=== PATIENT | male | born 1960 | race African-American/Black ===

== ENCOUNTER 2021-01-07 01:22 | Emergency (ER) | payer OTHER ==
[~2021-01-07] VITALS: Ht 172.7 cm; Wt 86.2 kg
[~2021-01-07 01:22] MED LIST: AMITRIPTYLINE H25 M2 PO; CARDURA1 MG PO; CELEXA 20 MG TA20 MG PO; CODEINE PO; CRESTOR10 MG PO; GABAPENTIN600 M1; HYDROCODON-ACE1 EAC7 PO; INVANZ 1GM/NS 101 GM IV; LEVITRA5 MG PO; NEURONTIN 300300 M1 PO; PRINIVIL20 MG PO; XANAX 0.25 MG0.25 MG PO; ZOSYN 3.3753.375 GM IV
[2021-01-07] MEDS ORDERED: OXYBUTYNIN 5 MG5 M2 PO (01:37)
[2021-01-07] MEDS ORDERED: TAMSULOSIN HCL0.4 MG PO (01:37)
[2021-01-07] MEDS ORDERED: METOPROLOL SUCC25 M1 PO (01:37)
[2021-01-07] MEDS ORDERED: ROSUVASTATIN CA20 MG PO (01:37)
[2021-01-07] MEDS ORDERED: VARDENAFIL HCL20 MG PO (01:37)
[2021-01-07] MEDS ORDERED: HYDROCHLOROTH12.5 M1 PO (01:37)
[2021-01-07 02:26] LABS: BASOPHILS 0.3 % (0.0-2.0); HEMATOCRIT 42.8 % (42.0-52.0); HEMOGLOBIN 14.4 gm/dL (14.0-18.0); MCH 29.1 pg (26.0-34.0); MCHC 33.7 g/dL (28.0-37.0); MCV 86.4 fL (80.0-100.0); MONOCYTES 9.5 % (1.0-8.0); PLATELET COUNT 217 thou/uL (150-400); POLYS 52.2 % (36.0-66.0); RBC 4.95 mil/uL (4.50-6.00); RDW 13.5 % (10.5-14.5); WBC 5.7 thou/uL (4.0-11.0)
[2021-01-07 02:32] LABS: CALCIUM 9.3 mg/dL (8.5-10.1); CREATININE 1.3 mg/dL (0.7-1.3); POTASSIUM 3.8 mmol/L (3.5-5.1)
[2021-01-07 02:38] LABS: ALBUMIN 4.4 g/dL (3.4-5.0); TOTAL BILIRUBIN 0.4 mg/dL (0.2-1.0); TOTAL PROTEIN 8.7 g/dL (6.4-8.2)
[2021-01-07] MEDS ORDERED: PERCOCET 5-3251 EACH PO (05:26)
[2021-01-07 05:51] VITALS: BP 149/71
== END 2021-01-07 05:50 | disposition home or self-care (01) ==
LOC: ER 01:22
PROVIDERS: Emergency Medicine
DX: S62.615A Displaced fracture of proximal phalanx of left ring finger, initial encounter for closed fracture (principal); S80.01XA Contusion of right knee, initial encounter; S60.222A Contusion of left hand, initial encounter; R51.9 Headache, unspecified; R07.89 Other chest pain; I10 Essential (primary) hypertension; R10.32 Left lower quadrant pain; M25.562 Pain in left knee; F32.9 Major depressive disorder, single episode, unspecified; F41.9 Anxiety disorder, unspecified; K75.9 Inflammatory liver disease, unspecified; F12.90 Cannabis use, unspecified, uncomplicated; Z98.890 Other specified postprocedural states; Z79.891 Long term (current) use of opiate analgesic; Z79.899 Other long term (current) drug therapy; Z88.8 Allergy status to other drugs, medicaments and biological substances; Z87.891 Personal history of nicotine dependence; Y04.0XXA Assault by unarmed brawl or fight, initial encounter; Y93.89 Activity, other specified; Y92.89 Other specified places as the place of occurrence of the external cause; Y99.8 Other external cause status

== ENCOUNTER 2021-02-20 10:51 | Inpatient (IN) | payer OTHER ==
[~2021-02-20] VITALS: Ht 170.2 cm; Wt 87.1 kg
[~2021-02-20 10:51] MED LIST changes: +HYDROCHLOROTH12.5 M1 PO; +METOPROLOL SUCC25 M1 PO; +OXYBUTYNIN 5 MG5 M2 PO; +PERCOCET 5-3251 EACH PO; +ROSUVASTATIN CA20 MG PO; +TAMSULOSIN HCL0.4 MG PO; +VARDENAFIL HCL20 MG PO
[2021-02-20 16:22] VITALS: BP 158/84
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
--- NOTE | 2021-02-20 18:48 | NUR ---
BP RECHECK AT 1800 148/77. EATING SUPPER IN ROOM CURENTLY
[2021-02-20 19:23] VITALS: BP 154/85
[2021-02-20 22:18] VITALS: BP 154/85
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
[2021-02-21 06:08] LABS: CHOLESTEROL 157 mg/dL (<200); HDL CHOLESTEROL 80 mg/dL (>40); LDL CHOLESTEROL 58 mg/dL (<100); TRIGLYCERIDE 97 mg/dL (<150); VLDL 19 mg/dL (<40)
[2021-02-21 06:16] LABS: SERUM ASSESSMENT Clear
--- NOTE | 2021-02-21 09:30 | NUR ---
Admit to [facility]. Hx: HTN, drug use, hepatitis B. Visit with pt this am-has hx recent wt loss about 25 lb and stated "was due to my situation, but that has changed". States appetite is good, ate 100% dinner last night and voiced no nutrition concerns. Presents low nutrition risk and will follow for weekly team meetings.
[2021-02-21 10:55] VITALS: BP 154/77
--- NOTE | 2021-02-21 17:29 | NUR ---
Patient care resummed; Patient resting comfortably in bed; A&O*4; Lung sounds clear, bilaterally/nonlabored; Abdomen soft, nondistended with active BS*4Q; VSS; on RoomAir; Patient has a cast to the Left arm, which is D/C/I; Patient stated pain of 7/10 in that arm, that "comes and goes;" states the pain "shoots" up his arm intermittently; Patient denies SI/HI/AVH; admits to [employer] hes depressed, and just doesn't know how he got here; Patient states "I just needed some help, someone to talk too & now I'm in this place." Patient is calm, cooperative, and pleasent; Patient has on nonslip socks; Ambulatory without assistance; will continue to monitior for safety and behaviors;
[2021-02-21 19:31] VITALS: BP 142/89
[2021-02-21 22:40] VITALS: BP 142/89
[2021-02-21 23:06] LABS: GLYCOHEMOGLOBIN (HGB A1C) 5.8 % (4.8-5.6)
--- NOTE | 2021-02-22 05:41 | NUR ---
Thor was alert and oriented x4 this shift. He presented as calm, cooperative, pleasant, and appropriate. He was noted walking at a fast pace around the unit and expressed he was exercising which helps him to sleep at night. He sat out in the dayroom and conversed with staff prior to going to bed. He stated that he had been thinking and he feels grateful for being placed here. He expressed "I know that I have to completely leave that situation and if it wouldn't be the first time that I've had to leave all be belongings behind". He stated that he had been thinking about about staying until the first march due to the events that occur due to the holidays and does not want to be around that. He denied SI/HI/URBINA and remained safe while on the unit. Pt expressed that he is only able to get about 3 hours of sleep and was noted up early this morning. He received hydroxyzine PRN at HS to help him sleep per pt request. Pt denied any physical complaints at this time and appears in good spirits; will continue to monitor.
[2021-02-22 09:52] VITALS: BP 139/88
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
[2021-02-22 15:00] VITALS: BP 139/88
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
--- NOTE | 2021-02-22 18:04 | NUR ---
Primary care done by Rebeca Kirkpatrick LPN. Assessment done by this RN. Alert and orientated X4. Calm, cooperative and compliant. Very detailed in responses to assessment questions. Denies SI/HI. Breath sounds clear. Reg HR auscultated. Color pink with brisk capillary refill and palpable peripheral pulses. Cast in place per L wrist, brisk capillary refill and good perfusion to fingers. Independent with voiding. Active bowel sounds over soft, rounded abdomen. Ambulates with regular, steady gait. Currently in day room watching TV with peers.
[2021-02-22 19:22] VITALS: BP 120/72
--- NOTE | 2021-02-23 04:30 | NUR ---
Assumed care of pt at 1900. pt calm et cooperative with [facility] this shift. Took medications whole without difficulty. Ambulates the halls ad german with steady gait. AOX3. VSWNL. Health assessment with no abnormalities noted at present time. Socialized with peers in dayroom at beginning of shift. Ambulated in the halls in inter com installer hours due to insomnia. Pt states, "I can only sleep about 3 hours at a time since I lost my last child to murder". Spoke with pt at length about stressors in his life et he expressed gratitude at end of conversation. Pt denies SI/HI at present time. No AVH at present time. No c/o pain or discomfort voiced this shift. Currently resting in bed with eyes closed. Will continue to monitor per unit protocol.
[2021-02-23 09:14] VITALS: BP 92/54
[2021-02-23 09:40] VITALS: BP 92/54
--- NOTE | 2021-02-23 17:46 | NUR ---
Assumed pt care this morning from overnight shift. Client was in bed resting at this time, but got up from bed and joined group in the activity area. Client presented as cheerful and calm and was talking to peers and staff. Client was oriented 4x at this time. Client denied any depression and anxiety during assessment. Client did voice some moderate pain. PRN tylenol given for this which provided complete pain relief. Client also given voltaren gel which helped decrease pain as well. Client expressed wanting scheduled stool softeners. This information was passed along to Dr. Webber. Client denied any hallucinations at this time. Client also denied any homicidal or suicidal thoughts. Client lung sounds were clear. Bowel sounds present. Last BM 02/23/21. Dr. Webber added scheduled senna BID to client's MAR. Client was informed of this and pt education provided. Client has not expressed any concerns at this time. No further concerns from this nurse.
[2021-02-23 19:10] VITALS: BP 124/71
--- NOTE | 2021-02-24 03:23 | NUR ---
Assumed care of pt at 1900. Pt calm et cooperative this shift with pleasant demeanor. Took medications whole without difficulty. Ambulates the halls ad german with steady gait. Socialized in dayroom with peers until HS. VSWNL. Health assessment with no abnormalities noted at present time. Pt denies SI/HI at present time. No AVH noted this shift. Continue to be friendly et supportive to peers and staff. Currently resting in bed with eyes closed. Will continue to monitor per unit protocol.
[2021-02-24 09:47] VITALS: BP 145/86
--- NOTE | 2021-02-24 14:01 | NUR ---
Assumed pt's care this am shift. Pt did walking laps in the hallways this am. Pleasant and cooperative with care. Interacting well with peers. Took meds without difficulties. Participating in groups. Currently sitting in the dayroom with peers. Nursing to continue to monitor.
--- NOTE | 2021-02-24 15:47 | NUR ---
Pt has a new order for covid PCR swap. Swab done and sent to lab. Awaiting results.
[2021-02-24 19:12] VITALS: BP 126/66
[2021-02-24 20:20] VITALS: BP 126/66
--- NOTE | 2021-02-25 00:36 | NUR ---
PATIENT SAT UP IN DINING ROOM MOST OF EVENING VISITING WITH ANOTHER PT. HE HAS BEEN CALM AND COMPLIANT. HE IS EXCITED ABOUT GOING TO THE ASSISTED LATER TODAY. HE TOOK HIS MEDS WHOLE WITH WATER. HE DENIES PAIN. DENIES SI/HI/AVH. HE PACED THE HALLS FOR A WHILE THIS EVENING TO TRY AND HELP HIM SLEEP. HE CURRENTLY IN RESTING IN BED WITH EYES CLOSED. VSS. ROUTINE ROUNDS TO ASSESS SAFETY AND STATUS OF PATIENT.
--- NOTE | 2021-02-25 07:11 | NUR ---
01-26-2021--4032--Call to patient's neice (Soo Hdz--[phone]). He would like to be DC'd to her home. Not in. Message left to call me back. Explained to patient if she didn't call me back by noon we would have to start making plans to [facility]. He stated his understandng. He states she is a cook for a school. He also asked if I knew someone who could help him on the outside. I suggested his therapist or manager of case management, or the people at the [facility]. I explained I had no contacts in [place].
--- NOTE | 2021-02-25 07:17 | NUR ---
02-25-2021--0720--ADDENDUM: Chacorta's name, Soo Hdz and her phone number is [phone].
[2021-02-25 09:33] VITALS: BP 119/80; BP 119/82
[2021-02-25] MEDS ORDERED: LIPITOR10 MG PO (11:26)
[2021-02-25] MEDS ORDERED: FLOMAX0.4 MG PO (11:26)
[2021-02-25] MEDS ORDERED: NEURONTIN 300M300 M2 PO (11:27)
--- NOTE | 2021-02-25 11:27 | NUR ---
02-25-2021--1100--Patient again made a call to his neice, Soo Hdz ([phone]). She answered the phone. He asked if he could come to her house from here and she stated yes. I will complete taxi voucher for him with her address [address] [place] [address], [place]. Maryjane will be called at [phone]
[2021-02-25 11:34] VITALS: BP 119/80
--- NOTE | 2021-02-25 12:11 | NUR ---
DISCHARGE INSTRUCTIONS REVIEWED WITH PT-HE STATES UNDERSTANDING AND DENIES QUESTIONS/CONCERNS. SMILING AND TALKATIVE AT TIME OF DC-DENIES SI/SH/HI-STATING HE FEELS "READY TO PAINT THE TOWN"STATES HE PLANS TO GO STAY WITH SONIA IN HER HOME-PERSONAL BELONGINGS SENT WITH PT AT TIME OF DC-DC VIA WC TO AWAITING CAB ACCOMPNIED BY NURSING STAFF AT APPROX 1230
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
== END 2021-02-25 12:40 | disposition home or self-care (01) | DRG 885 ==
LOC: SBH 10:51
PROVIDERS: Hospitalist; ADMIT Psychiatry & Neurology Psychiatry; ATTEND Psychiatry & Neurology Psychiatry
DX: F33.1 Major depressive disorder, recurrent, moderate (principal); B19.10 Unspecified viral hepatitis B without hepatic coma; F12.19 Cannabis abuse with unspecified cannabis-induced disorder; I10 Essential (primary) hypertension; E78.5 Hyperlipidemia, unspecified; K21.9 Gastro-esophageal reflux disease without esophagitis; F14.90 Cocaine use, unspecified, uncomplicated; F43.20 Adjustment disorder, unspecified; F43.10 Post-traumatic stress disorder, unspecified; Z20.822 Contact with and (suspected) exposure to COVID-19; N40.0 Benign prostatic hyperplasia without lower urinary tract symptoms; M25.522 Pain in left elbow; Z86.19 Personal history of other infectious and parasitic diseases; Z28.21 Immunization not carried out because of patient refusal
CPT/HCPCS: 10880

== ENCOUNTER 2021-02-20 11:16 | Emergency (ER) | payer OTHER ==
[~2021-02-20] VITALS: Ht 170.2 cm; Wt 102.1 kg
--- NOTE | ~2021-02-20 | EMS ---
[address] [address] EMS Patient Care Report Name: STUART ARMENTA Room #: DEP JAGDEEP Alvarado#: [id number] Admission: 02/20/21 Attend Phys: Discharge: 02/20/21 Date of : 56 Report #: [id number] THIS REPORT FOR: //name// Report Transmitted: 02/21/2021 13:29 EMS Care Summary [place], [place]/[facility] Incident [id number] @ 02/20/2021 10:07 Incident Location [address] [facility] [address] Patient KATHI DAVIDSON Male, 60 Years 1960 Patient Address [address] [place] [address] Patient History Hypertension (HTN),Depression, Patient Allergies Oxycodone, Patient Medications Pantoprazole, Hydrochlorothiazide (Hctz), Metoprolol, Chief Complaint NONE Disposition Transported No Lights/Cove Dispatch Reason Transfer/Interfacility/Palliative Care Transported To [facility] Narrative Arrived at [facility] room S37 for Patient admitted for S/I, found Patient sitting in room walked to ambulance with assistance sat on bench seat belts on. Patient COVID neg. wearing a mask. upon arrival Patient taken to ER, Paperwork and report given to nurse signature obtained returned to service without [address] [address] EMS Patient Care Report Name: STUART ARMENTA Room #: DEP ER Jenny#: [id number] Admission: 02/20/21 Attend Phys: Discharge: 02/20/21 Date of : 56 Report #: [id number] incident. Initial Vitals @PTAP: 65,R: 18,BP: 182/93,Temp: 98.7F,SpO2: 98, @10:44P: 59,R: 18,BP: 178/100,Pain: 2/10,GCS: 15,SpO2: 95,Revised Trauma: 12, @10:55P: 50,R: 17,BP: 187/102,Pain: 2/10,GCS: 15,SpO2: 95,Revised Trauma: 12, Assessments @10:46MENTAL:Place Oriented,Event Oriented,Time Oriented,Person Oriented,SKIN:HEENT:Head/Face: No Abnormalities,Eyes: No Abnormalities,Neck/Airway: No Abnormalities,LUNG SOUNDS:ABDOMEN:PELVIS//GI:EXTREMITIES:Left Arm: Other,Capillary Refill: Right Lower: < 2 Sec,Right Arm: No Abnormalities,Left Leg: No Abnormalities,Right Leg: No Abnormalities,PULSE:Radial: 2+ Normal,NEURO:No Abnormalities, Impression Behavioral/psychiatric episode Procedures @10:40 BLS Assessment Timeline RESIDENT ASSOCIATE,BP: 182/93 M,PULSE: 65,RR: 18 R,SPO2: 98 Ox,ETCO2: ,BG: ,PAIN: ,GCS: , 10:04,Call Received 10:04,Dispatch Notified 10:07,Dispatched 10:08,En Route 10:26,On Scene 10:37,At Patient 10:40,BLS Assessment, 10:44,BP: 178/100 M,PULSE: 59,RR: 18 R,SPO2: 95 Ox,ETCO2: ,BG: ,PAIN: 2,GCS: 15, 10:45,Depart Scene 10:55,BP: 187/102 M,PULSE: 50,RR: 17 R,SPO2: 95 Ox,ETCO2: ,BG: ,PAIN: 2,GCS: 15, 11:12,At Destination 11:16,Call Closed Disclaimer v1.1 Copyright 2020 [employer] This EMS Care Summary contains data elements from the applicable legal record (which may be displayed differently). It is designed to provide pertinent information for the following purposes: continuity of care, clinical quality, and state data reporting. The complete legal record is available to ED staff and administrators of the receiving hospital in [facility]'s Patient Tracker. All data [address] [address] EMS Patient Care Report Name: KATHISTUART Room #: DEP ER Jenny#: [id number] Admission: 02/20/21 Attend Phys: Discharge: 02/20/21 Date of : 56 Report #: [id number] is provided "as is."
[2021-02-20 15:03] VITALS: BP 160/74
== END 2021-02-20 15:51 ==
LOC: ER 11:16
PROVIDERS: Physician Assistant
DX: Z20.822 Contact with and (suspected) exposure to COVID-19 (principal); I10 Essential (primary) hypertension; F32.9 Major depressive disorder, single episode, unspecified; F41.9 Anxiety disorder, unspecified; G47.00 Insomnia, unspecified; Z88.5 Allergy status to narcotic agent; Z79.899 Other long term (current) drug therapy; Z87.891 Personal history of nicotine dependence